=== PATIENT | male | born 1945 | race Caucasian/White ===

== ENCOUNTER → 2016-06-19 | Outpatient (CLI) | payer OTHER ==
[~2016-06-19] MED LIST: AMOX500C3 PO; ASPEC325 PO; ASPI81TA28 PO; ATOR-26 PO; EPP3/2 IM; FLUT0.15 NAE; LISI-461 PO; LVNIS40 SC; METO25TA3 PO; PRED20TA2 PO; RANI150T3 PO
--- NOTE | 2016-06-19 11:22 | DIAGNOSTIC IMAGING REPORT ---
ABDOMEN ULTRASOUND FOR HERNIA CLINICAL HISTORY: Left inguinal hernia. COMPARISON STUDY: Abdomen and pelvis CT 03/15/2014. FINDINGS: Real-time sonographic imaging of the left inguinal region was performed. Moderate fat-containing nonreducible left inguinal hernia. The neck of the hernia measures 1.9 cm. IMPRESSION: Moderate fat-containing nonreducible left inguinal hernia. Electronically signed by: Devan Boss M.D. 06/19/2016 11:20 AM
== END | disposition home or self-care (01) ==
LOC: C.ULTR 09:30
PROVIDERS: ATTEND Nurse Practitioner
DX: K40.90 Unilateral inguinal hernia, without obstruction or gangrene, not specified as recurrent (principal)

== ENCOUNTER → 2016-09-02 | Outpatient (CLI) | payer OTHER ==
[~2016-09-02] MED LIST changes: -ASPEC325 PO; -LVNIS40 SC
[2016-09-02 12:45] LABS: ALB/GLOB RATIO 0.9 (0.9-2); ALT/SGPT 29 U/L (12-78); AST/SGOT 29 U/L (15-37); BLOOD UREA NITROGEN 16 mg/dl (7-18); BUN/CREATININE RATIO 13.4 (10-20); CALCIUM 9.1 mg/dl (8.5-10.1); CARBON DIOXIDE 33 mmol/L (21-32); CHLORIDE 102 mmol/L (98-107); GLUCOSE 90 mg/dl (70-99); POTASSIUM 4.6 mmol/L (3.5-5.1); SODIUM 138 mmol/L (136-145)
[2016-09-02 12:56] LABS: ALKALINE PHOSPHATASE 83 U/L (45-117); CHOLESTEROL 165 mg/dl (0-200); CHOLESTEROL/HDL RATIO 4.1; HDL CHOLESTEROL 40 mg/dl; LDL CHOLESTEROL CALCULATED 100 mg/dl; TRIGLYCERIDES 124 mg/dl (0-150); VERY LOW DENSITY LIPOPROT CALC 25 mg/dl
--- NOTE | 2016-09-09 09:04 | CODING QUERY MEDICAL NECESSITY ---
SUPPORTING DIAGNOSIS NEEDED A supporting diagnosis is required for the test/procedure performed on this patient in order for us to be reimbursed by the patient's insurance. Please provide a supporting diagnosis for the following test/procedure listed below next to the test name along with your signature. *If there is no additional diagnosis for this patient that would support the following test/procedure please document that below next to the test/procedure. Test(s)/Procedure(s) that require a supporting diagnosis: DOS 09/02 * Vitamin D DIAGNOSIS: Provider Signature: Date: Thank you Fanta Forrester Health Information Management Once completed, please kindly fax back to [phone] For questions please call [phone]
== END | disposition home or self-care (01) ==
LOC: C.LABPVFM 10:34
PROVIDERS: ATTEND Family Medicine
DX: Z11.59 Encounter for screening for other viral diseases (principal); E78.5 Hyperlipidemia, unspecified; Z13.21 Encounter for screening for nutritional disorder; Z12.5 Encounter for screening for malignant neoplasm of prostate

== ENCOUNTER 2016-12-03 16:57 | Emergency (ER) | payer OTHER ==
[~2016-12-03] VITALS: Ht 165.1 cm; Wt 78.7 kg
[~2016-12-03 16:57] MED LIST changes: -EPP3/2 IM; -FLUT0.15 NAE; -PRED20TA2 PO; -RANI150T3 PO
[2016-12-03 17:00] VITALS: TEMP 37.3; Ht 165.1 cm; Wt 78.7 kg
[2016-12-03] MEDS ORDERED: ALBUTEROL 0.5% NEB SOLN 2.5 MG/0.5 ML VIAL INH STA (17:15)
[2016-12-03] MEDS ORDERED: SODIUM CHLORIDE 0.9% 500ML 500 ML IV STA (17:15)
[2016-12-03] MEDS ORDERED: RANITIDINE HCL 50 MG/100 ML D5W IV STA (17:15)
[2016-12-03] MEDS ORDERED: DiphenhydrAMINE HCL 50 MG/ML VIAL IV STA ×2 (17:15→18:03)
[2016-12-03] MEDS ORDERED: FLUT0.15 NAE (17:23)
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
[2016-12-03] MEDS ORDERED: RACEPINEPHRINE 2.25% NEBU SOLN 0.5 ML VIAL INH STA (18:03)
[2016-12-03 18:27] VITALS: PULSE 85; O2SAT 95
[2016-12-03] MEDS ORDERED: MAGNESIUM SULFATE 1GM / D5W 1 GM BAG IV STA (18:33)
[2016-12-03] MEDS ORDERED: PRED20TA2 PO (19:35)
[2016-12-03] MEDS ORDERED: EPP3/2 IM (19:35)
[2016-12-03] MEDS ORDERED: RANI150T3 PO (19:35)
[2016-12-03 19:57] VITALS: BP 130/77; PULSE 104; O2SAT 94
== END 2016-12-03 20:01 | disposition home or self-care (01) ==
LOC: EDBD 16:57 → C.EDC 16:58
DX: T78.40XA Allergy, unspecified, initial encounter (principal); X58.XXXA Exposure to other specified factors, initial encounter; Z95.1 Presence of aortocoronary bypass graft; Z87.891 Personal history of nicotine dependence; Z79.82 Long term (current) use of aspirin; Z79.899 Other long term (current) drug therapy

== ENCOUNTER → 2017-01-02 | Outpatient (CLI) | payer OTHER ==
[~2017-01-02] MED LIST changes: -AMOX500C3 PO; +EPP3/2 IM; +FLUT0.15 NAE; +PRED20TA2 PO
[2017-01-02 13:13] LABS: ALT/SGPT 22 U/L (12-78); BLOOD UREA NITROGEN 14 mg/dl (7-18); BUN/CREATININE RATIO 11.7 (10-20); CALCIUM 9.2 mg/dl (8.5-10.1); CARBON DIOXIDE 30 mmol/L (21-32); CHLORIDE 104 mmol/L (98-107); CHOLESTEROL 165 mg/dl (0-200); GLUCOSE 90 mg/dl (70-99); POTASSIUM 4.2 mmol/L (3.5-5.1); SODIUM 139 mmol/L (136-145); TRIGLYCERIDES 142 mg/dl (0-150); VERY LOW DENSITY LIPOPROT CALC 28 mg/dl
[2017-01-02 13:15] LABS: ALB/GLOB RATIO 0.8 (0.9-2); ALKALINE PHOSPHATASE 81 U/L (45-117); AST/SGOT 25 U/L (15-37); HDL CHOLESTEROL 33 mg/dl; LDL CHOLESTEROL CALCULATED 104 mg/dl
== END | disposition home or self-care (01) ==
LOC: C.LABPVFM 08:48
PROVIDERS: ATTEND Family Medicine
DX: I25.10 Atherosclerotic heart disease of native coronary artery without angina pectoris (principal); E78.5 Hyperlipidemia, unspecified; I10 Essential (primary) hypertension; R35.1 Nocturia

== ENCOUNTER 2017-06-07 10:29 | Inpatient (IN) | payer OTHER ==
[~2017-06-07] VITALS: Ht 165.1 cm; Wt 87.0 kg
[2017-06-07] VITALS (7 sets, daily range): BP systolic 131–146; BP diastolic 76–80; PULSE 69–76; TEMP 36.6–36.8; O2SAT 94–99; Ht 165.1 cm; Wt 87.0 kg
[~2017-06-07 10:29] MED LIST changes: -PRED20TA2 PO
[2017-06-07] MEDS ORDERED: ONDANSETRON INJ 2 MG/ML 2 ML VIAL IV STA (11:59)
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
[2017-06-07 12:10] LABS: BASO % 0.2 %; BASO ABS # 0.02 K/uL (0-0.2); HEMATOCRIT 41.8 % (42-52); IG# 0.04 K/uL (0.00-0.02); LYMPH % 5.4 %; MEAN CELL VOLUME 92.7 fL (80-100); MEAN CORPUSCULAR HGB CONC 33.5 g/dl (32-36); MONO % 3.9 %; MONO ABS # 0.43 K/uL (0.11-0.59); NEUT % 90.1 %; NEUT ABS # 9.94 K/uL (1.4-6.5); PLATELET COUNT 226 K/uL (130-400); RED CELL DISTRIBUTION WIDTH CV 13.6 % (11.5-14.5); RED CELL DISTRIBUTION WIDTH SD 46.4 fL (36.4-46.3); WHITE BLOOD COUNT 11.03 K/uL (4.8-10.8)
[2017-06-07 12:22] LABS: ALBUMIN 3.7 gm/dl (3.4-5.0); ALT/SGPT 22 U/L (12-78); BLOOD UREA NITROGEN 21 mg/dl (7-18); CALCIUM 8.8 mg/dl (8.5-10.1); CARBON DIOXIDE 28 mmol/L (21-32); CREATININE 1.48 mg/dl (0.60-1.40); GLUCOSE 117 mg/dl (70-99); POTASSIUM 4.9 mmol/L (3.5-5.1); SODIUM 136 mmol/L (136-145)
[2017-06-07 12:24] LABS: PTT PATIENT 24.2 SECONDS (21.0-31.0)
[2017-06-07 12:31] LABS: ALKALINE PHOSPHATASE 85 U/L (45-117); AST/SGOT 26 U/L (15-37); CKMB 3.3 ng/ml (0.5-3.6); TOTAL PROTEIN 7.9 gm/dl (6.4-8.2)
--- NOTE | 2017-06-07 12:49 | DIAGNOSTIC IMAGING REPORT ---
CT HEAD WITHOUT CONTRAST (CT) CLINICAL HISTORY: syncope, dizziness COMPARISON STUDY: 03/15/2014 TECHNIQUE: Axial CT of the brain is performed from the vertex to the skull base. IV contrast was not administered for this examination. A dose lowering technique was utilized adhering to the principles of ALARA. CT DOSE: 537.48 mGy.cm FINDINGS: No intra or extra-axial mass lesions are visualized. There is no CT evidence of acute cortical infarction. There is no evidence of midline shift. There is no acute hemorrhage. No calvarial fractures are visualized. There are minimal white matter hypodensities likely on a small vessel basis. There is no evidence of pathologic ventricular dilatation. There is a partially visualized right and exercise retention cyst. There is no acute sinusitis. IMPRESSION: No acute intracranial findings Electronically signed by: Wood Asif M.D. 06/07/2017 12:47 PM Dictated Date/Time: 06/07/2017 12:45 PM
--- NOTE | 2017-06-07 13:01 | DIAGNOSTIC IMAGING REPORT ---
CHEST 2 VIEWS ROUTINE CLINICAL HISTORY: syncope COMPARISON STUDY: March 16, 2014 FINDINGS: The cardiac and mediastinal contours remain stable. There is aortic ectasia with possible aneurysmal dilatation of the ascending thoracic aorta. There is no failure. There is no focal pulmonary consolidation. There are no pleural effusions.[ IMPRESSION: Persistent aortic ectasia with possible aneurysmal dilatation of the ascending thoracic aorta. No acute findings. Electronically signed by: Wood Asif M.D. 06/07/2017 12:59 PM Dictated Date/Time: 06/07/2017 12:58 PM
--- NOTE | 2017-06-07 13:36 | EMERGENCY ROOM VISIT NOTE ---
ED Visit Note First contact with patient: 11:24 72-year-old male with dizziness and apparent syncopal episode earlier this morning. The patient was fully evaluated by Kelly Moore PA-C. Please see her report. I also independently evaluated the patient. The patient did have 1 troponin that was elevated although the second troponin was not elevated. Patient also had slight elevation of his ST component in leads 3 and leads V3. The patient will require further evaluation in the hospital. Consultation was obtained with the hospitalist.
[2017-06-07] MEDS ORDERED: ASPIRIN 324 MG CHEW PO STA (14:12)
[2017-06-07] MEDS ORDERED: MAGNESIUM HYDROXIDE SUSP 30 ML UDC PO PRN (14:45)
[2017-06-07] MEDS ORDERED: ZOLPIDEM TARTRATE 5 MG TAB PO PRN (14:45)
[2017-06-07] MEDS ORDERED: POLYETHYLENE (MIRALAX) 17 GM PACK PO PRN (14:45)
[2017-06-07] MEDS ORDERED: ALUMINUM/MAGNESIUM/SIMETH (MAALOX MAX) 30 ML UDC PO PRN (14:45)
[2017-06-07] MEDS ORDERED: PHARMACIST DISCHARGE MED REC CONSULT PRN (14:45)
[2017-06-07] MEDS: ACETAMINOPHEN 325 MG TAB PO PRN ×2 (14:59→21:38)
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
--- NOTE | 2017-06-07 15:51 | DIAGNOSTIC IMAGING REPORT ---
MRI OF THE BRAIN WITHOUT CONTRAST CLINICAL HISTORY: Stroke DIZZINESS. IMBALANCE. NAUSEA. COMPARISON STUDY: Noncontrast head CT dated 06/07/2017 FINDINGS: Sagittal T1, axial diffusion, proton density and T2 weighted axial, coronal FLAIR, and axial T1-weighted images were acquired. No intra or extra-axial mass lesions are visualized Axial diffusion-weighted images reveal no evidence of acute or subacute infarction. There is no evidence of ventricular dilatation. Proton density T2-weighted and FLAIR images reveal scattered foci of increased T2 signal within the white matter, likely on a small vessel basis. There are no abnormal flow voids. There is a right maxillary sinus retention cyst. IMPRESSION: 1. No acute intracranial findings 2. No evidence of acute or subacute infarction 3. No evidence of intracranial mass. Electronically signed by: Wood Asif M.D. 06/07/2017 3:49 PM Dictated Date/Time: 06/07/2017 3:48 PM
--- NOTE | 2017-06-07 15:53 | DIAGNOSTIC IMAGING REPORT ---
MR ANGIOGRAPHY OF THE [place] OF [place] NO CONTRAST CLINICAL HISTORY: Stroke, dizziness, imbalance, nausea. COMPARISON STUDY: None. A 3-D [id number] MR angiographic sequence of the [place] was performed. Both the source and projection images were reviewed. There is no evidence of major intracranial branch occlusion. There is no evidence of intracranial stenosis. There are no lesions suspicious for aneurysm. IMPRESSION: Unremarkable MR angiography of the [place]. Electronically signed by: Wood Asif M.D. 06/07/2017 3:52 PM Dictated Date/Time: 06/07/2017 3:50 PM
--- NOTE | 2017-06-07 16:10 | DIAGNOSTIC IMAGING REPORT ---
NECK MRA HISTORY: And balance. Dizziness. Stroke TECHNIQUE: [id number] and gadolinium-enhanced MRA of the neck was performed both before and after the intravenous administration of contrast. All measurements were calculated based on NASCET criteria. The patient was administered 8.5 cc of intravenous Gadavist COMPARISON STUDY: None. FINDINGS: The aortic arch and proximal great vessels are widely patent. There is no significant stenosis, occlusion, or dissection identified within the bilateral common carotid, internal carotid, or vertebral arteries. IMPRESSION: No significant stenosis, occlusion, or dissection identified within the carotid or vertebral arteries. Electronically signed by: Wood Asif M.D. 06/07/2017 4:08 PM Dictated Date/Time: 06/07/2017 4:05 PM
--- NOTE | 2017-06-07 16:30 | NUR ---
A: Patient received to room E202 from ED s/p MRI via stretcher. Patient slide transferred himself from stretcher to bed. Patient states that he continues to feel "off-balance". Patient states that he is not dizzy and that the room is not spinning. Patient states that he does have the feeling of being off-balance whenever he is lying flat or with certain head movements. He states that anterior/posterior movements impact him more than lateral head movements. Patient does have mild nystagmus on assessment. MRI's have been completed and results are pending. Telemetry applied, strip verified. Vital signs obtained and stable. Patient oriented to room, call moreno use, and unit procedures. Verbalizes understanding. Patient will be given red socks due to ataxia and recent falls/syncope. Admission nursing assessments to be completed.
[2017-06-07] MEDS ORDERED: ATORVASTATIN 40 MG TAB PO SCH (17:00)
[2017-06-07] MEDS ORDERED: SODIUM CHLORIDE 0.9% 1000ML 1,000 ML IV SCH (17:00)
--- NOTE | 2017-06-07 17:00 | NUR ---
A/ID: 72 year old male from ED. Admission Assessment done. Code Word/Fall Agreement reviewed with patient and completed. Continued care by BRANDYN Dalal.
--- NOTE | 2017-06-07 18:28 | DIAGNOSTIC IMAGING REPORT ---
MRI LUMBAR SPINE COMBINATION CLINICAL HISTORY: Ataxia. 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 Imaging was performed before and after administration of 4.5 cc of intravenous Gadavist COMPARISON STUDY: No previous studies for comparison. OBSERVATIONS: The vertebral bodies and posterior elements appear intact. There is no abnormal bony signal present to suggest a marrow replacement process. L1-2: There is a tiny left paracentral disc protrusion. There is no significant spinal or foraminal stenosis L2-3: There is a minimal circumferential disc bulge. There is no spinal or foraminal stenosis L3-4: There is a tiny right paracentral disc protrusion. There is no significant spinal or foraminal stenosis L4-5: There is a circumferential disc bulge. There is minor flattening of the anterior thecal sac. There is no significant foraminal narrowing L5-S1: There is a minor circumferential disc bulge. There is no significant spinal stenosis. There is mild left-sided foraminal narrowing. The conus appears unremarkable in appearance. There is a fatty filum terminale. There is no significant nerve root thickening or significant pathologic nerve root enhancement. Assessment for subtle nerve root enhancement is difficult, as a true noncontrast study was not performed. This examination is performed in emergency basis, despite the patient having received contrast for MR angiography of the neck approximately 2 hours prior to this study. If symptoms persist or progress, a repeat study with at least 12 hours would be recommended. IMPRESSION: 1. Mild multilevel spondylitic changes. 2. No definite evidence of significant pathologic nerve root thickening or enhancement. As stated above, the examination is somewhat limited from a technical standpoint as a true noncontrast study was not performed as the patient received contrast 2 hours prior to this study during an MRA of the neck. If the patient's symptoms persist or progress, a repeat MRI study after at least 12 hours would be recommended. Electronically signed by: Wood Asif M.D. 06/07/2017 6:27 PM Dictated Date/Time: 06/07/2017 6:09 PM
[2017-06-07] MEDS ORDERED: LVNIS40 SC (19:57)
[2017-06-07] MEDS ORDERED: ASPEC325 PO (19:57)
--- NOTE | 2017-06-07 19:58 | Discharge Instructions ---
Discharge Instructions Date of Service Jun 07, 2017. Admission Reason for Admission: Ataxia Discharge Discharge Diagnosis / Problem: ataxia, suspected GBS Discharge Goals Goal(s): Improve function Activity Recommendations Activity Limitations: resume your previous activity . Current Hospital Diet Patient's current hospital diet: AHA Diet (Heart Healthy) Discharge Diet Recommended Diet: Regular Diet Pending Studies Studies pending at discharge: no Laboratory Results Lipid Panel Test 06/07/17 11:50 Range/Units Triglycerides Level 148 0-150 mg/dl Cholesterol Level 140 0-200 mg/dl HDL Cholesterol 33 mg/dl Cholesterol/HDL Ratio 4.2 LDL Cholesterol, Calculated 77 mg/dl Medical Emergencies . Who to Call and When: Medical Emergencies: If at any time you feel your situation is an emergency, please call 911 immediately. . Non-Emergent Contact Non-Emergency issues call your: Primary Care Provider . . "Provider Documentation" section prepared by Ronna Bella. . VTE Core Measure Inpt VTE Proph given/why not?: Enoxaparin (Lovenox)SQ
--- NOTE | 2017-06-07 20:15 | Discharge Summary ---
Discharge Summary Date of Service Jun 07, 2017. 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 Problems/Secondary Diagnoses: Hypertension CAD status post CABG Dyslipidemia Medication Reconciliation New Medications: Aspirin (Aspirin) 325 Mg Ectab 325 MG PO QAM for 30 Days, #30 Enoxaparin (Enoxaparin Sodium) 40 Mg/0.4 Ml Inj 40 MG SC Q24H for 30 Days, #1 Continued Medications: Atorvastatin (Lipitor) 80 Mg Tab 80 MG PO DAILY, TAB Epinephrine (Epipen) 0.3 Mg/0.3 Ml Inj 0.3 MG IM UD, #2 BOX Fluticasone Propionate (Nasal) (Flonase Allergy Relief) 50 Mcg/Act Spr 1 SPRAY ROEL DAILY Discontinued Medications: Aspirin (Aspirin Ec) 81 Mg Tab 81 MG PO DAILY Lisinopril (Zestril) 10 Mg Tab 10 MG PO DAILY, TAB Metoprolol Succ (Toprol Xl) (Toprol-Xl) 25 Mg Tabcr 25 MG PO DAILY, #30 TAB Discharge Exam Review of Systems: Constitutional: No fever, No chills, No sweats, No weight loss, No weakness , No fatigue, No problem reported Eyes: No worsening of vision, No eye pain, No redness, No discharge, No diplopia, No problem reported ENT: No hearing loss, No unusual epistaxis, No nasal symptoms, No sore throat, No tinnitus, No dental problems, No trouble swallowing, No problem reported Respiratory: No cough, No sputum, No wheezing, No shortness of breath, No dyspnea on exertion, No dyspnea at rest, No hemoptysis, No problem reported Cardiovascular: No chest pain, No orthopnea, No PND, No edema, No claudication, No palpitations, No problem reported Abdomen: No pain, No nausea, No vomiting, No diarrhea, No constipation, No GI bleeding, No problem reported Musculoskeletal: No joint pain, No muscle pain, No swelling, No calf pain, No problem reported Genitourinary - Male: No hematuria, No dysuria, No urinary frequency, No urinary urgency, No urinary hesitancy, No urinary retention, No urinary incontinence, No penile discharge, No lesions, No impotence, No problem reported Neurologic: + problem reported (ataxia) Psychiatric: No depression symptoms, No anhedonism, No anxiety, No insomnia , No substance abuse, No problem reported Endocrine: No fatigue, No excessive thirst, No excessive urination, No problem reported Hematologic / Lymphatic: No abnormal bleeding/bruising, No clotting problems , No swollen lymph nodes, No night sweats, No problem reported Integumentary: No rash, No itch, No new/changing skin lesions, No color change, No bleeding, No problem reported Physical Exam: General Appearance: WD/WN, no apparent distress Eyes: normal inspection, EOMI ENT: normal ENT inspection, hearing grossly normal Neck: supple Respiratory/Chest: chest non-tender, lungs clear, normal breath sounds, no respiratory distress, no accessory muscle use Cardiovascular: regular rate, rhythm, no edema, no gallop, no JVD, no murmur Abdomen / GI: normal bowel sounds, non tender, soft, no organomegaly, no pulsatile mass Extremities: normal inspection, no calf tenderness, normal capillary refill , no pedal edema Neurologic/Psychiatric: 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 Assessment Persistent ataxia since 2 AM with no other neurologic finding, certainly suspicious for cerebellar stroke versus TIA, MRI head was negative, MRA head and neck were negative all results attached. D/W neurologist, ordered MRI w contrast to lumbar area, unfortunately the gadolinium given for the MRA neck masked enhancement. 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 received ASA 324, lipitor 80mg BP meds held for permissive HTN D/W Dr. Gordon in [facility] who accepted the patient to be transferred to [facility] for monitoring and plasma pheresis if needed NECK MRA HISTORY: And balance. Dizziness. Stroke TECHNIQUE: [id number] and gadolinium-enhanced MRA of the neck was performed both before and after the intravenous administration of contrast. All measurements were calculated based on NASCET criteria. The patient was administered 8.5 cc of intravenous Gadavist COMPARISON STUDY: None. FINDINGS: The aortic arch and proximal great vessels are widely patent. There is no significant stenosis, occlusion, or dissection identified within the bilateral common carotid, internal carotid, or vertebral arteries. IMPRESSION: No significant stenosis, occlusion, or dissection identified within the carotid or vertebral arteries. Electronically signed by: Wood Asif M.D. 06/07/2017 4:08 PM Dictated Date/Time: 06/07/2017 4:05 PM MR ANGIOGRAPHY OF THE [place] NO CONTRAST CLINICAL HISTORY: Stroke, dizziness, imbalance, nausea. COMPARISON STUDY: None. A 3-D [id number] MR angiographic sequence of the [place] was performed. Both the source and projection images were reviewed. There is no evidence of major intracranial branch occlusion. There is no evidence of intracranial stenosis. There are no lesions suspicious for aneurysm. IMPRESSION: Unremarkable MR angiography of the [place]. Electronically signed by: Wood Asif M.D. 06/07/2017 3:52 PM Dictated Date/Time: 06/07/2017 3:50 PM MRI OF THE BRAIN WITHOUT CONTRAST CLINICAL HISTORY: Stroke DIZZINESS. IMBALANCE. NAUSEA. COMPARISON STUDY: Noncontrast head CT dated 06/07/2017 FINDINGS: Sagittal T1, axial diffusion, proton density and T2 weighted axial, coronal FLAIR, and axial T1-weighted images were acquired. No intra or extra-axial mass lesions are visualized Axial diffusion-weighted images reveal no evidence of acute or subacute infarction. There is no evidence of ventricular dilatation. Proton density T2-weighted and FLAIR images reveal scattered foci of increased T2 signal within the white matter, likely on a small vessel basis. There are no abnormal flow voids. There is a right maxillary sinus retention cyst. IMPRESSION: 1. No acute intracranial findings 2. No evidence of acute or subacute infarction 3. No evidence of intracranial mass. Electronically signed by: Wood Asif M.D. 06/07/2017 3:49 PM Dictated Date/Time: 06/07/2017 3:48 PM MRI LUMBAR SPINE COMBINATION CLINICAL HISTORY: Ataxia. 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 Imaging was performed before and after administration of 4.5 cc of intravenous Gadavist COMPARISON STUDY: No previous studies for comparison. OBSERVATIONS: The vertebral bodies and posterior elements appear intact. There is no abnormal bony signal present to suggest a marrow replacement process. L1-2: There is a tiny left paracentral disc protrusion. There is no significant spinal or foraminal stenosis L2-3: There is a minimal circumferential disc bulge. There is no spinal or foraminal stenosis L3-4: There is a tiny right paracentral disc protrusion. There is no significant spinal or foraminal stenosis L4-5: There is a circumferential disc bulge. There is minor flattening of the anterior thecal sac. There is no significant foraminal narrowing L5-S1: There is a minor circumferential disc bulge. There is no significant spinal stenosis. There is mild left-sided foraminal narrowing. The conus appears unremarkable in appearance. There is a fatty filum terminale. There is no significant nerve root thickening or significant pathologic nerve root enhancement. Assessment for subtle nerve root enhancement is difficult, as a true noncontrast study was not performed. This examination is performed in emergency basis, despite the patient having received contrast for MR angiography of the neck approximately 2 hours prior to this study. If symptoms persist or progress, a repeat study with at least 12 hours would be recommended. IMPRESSION: 1. Mild multilevel spondylitic changes. 2. No definite evidence of significant pathologic nerve root thickening or enhancement. As stated above, the examination is somewhat limited from a technical standpoint as a true noncontrast study was not performed as the patient received contrast 2 hours prior to this study during an MRA of the neck. If the patient's symptoms persist or progress, a repeat MRI study after at least 12 hours would be recommended. Electronically signed by: Wood Asif M.D. 06/07/2017 6:27 PM Dictated Date/Time: 06/07/2017 6:09 PM Total Time Spent: Greater than 30 minutes This includes examination of the patient, discharge planning, medication reconciliation, and communication with other providers. Discharge Instructions Please refer to the electronic Patient Visit Report (Discharge Instructions) for additional information.
[2017-06-07] MEDS ORDERED: ENOXAPARIN 40 MG/0.4 ML SYR SC SCH (21:00)
--- NOTE | 2017-06-07 22:47 | NUR ---
Pt was discharged to [facility] via S. Report was called to recieving nurse. Pt packed up and transferred via S. Discharge paperwork provided and faxed to [facility].
[2017-06-08] MEDS ORDERED: ASPIRIN 325 MG ECTAB PO SCH (09:00)
[2017-06-08] MEDS ORDERED: FLUTICASONE PROPIONATE NA SPR 16 GM BTL NAE SCH (09:00)
--- NOTE | 2017-06-08 09:15 | NUR ---
[facility] case management note. Social service consult for discharge planning. Upon chart review found pt to be transferred to [facility] [place].
--- NOTE | 2017-06-16 09:51 | Neurology Consultation ---
Neurology Consultation Date of Consultation: Jun 16, 2017. Attending Physician: Ronna Palmer MD Primary Care Physician: Ashley Hernandez M.D. Reason for Consultation: ataxia History of Present Illness Patient discharged before seen Past Medical/Surgical History Medical Problems: (1) Allergic reaction Status: Acute (2) Dizziness Status: Acute (3) Syncope Status: Acute Social History Marital Status: Housing Status: lives with significant other Allergies Coded Allergies: Lactose Intolerance (GI) (Verified Allergy, Unknown, adverse reaction, respiratory, 06/07/17)
== END 2017-06-07 19:30 | disposition short-term general hospital (02) | DRG 96 ==
LOC: C.EDB 10:30 → C.2E 14:45 → ENRESERV 14:55
PROVIDERS: ADMIT Internal Medicine; ATTEND Internal Medicine
DX: G61.0 Guillain-Barre syndrome (principal); R27.0 Ataxia, unspecified; R55 Syncope and collapse; I11.9 Hypertensive heart disease without heart failure; I25.10 Atherosclerotic heart disease of native coronary artery without angina pectoris; E78.5 Hyperlipidemia, unspecified; Z51.81 Encounter for therapeutic drug level monitoring; Z79.899 Other long term (current) drug therapy; Z79.82 Long term (current) use of aspirin; Z95.1 Presence of aortocoronary bypass graft